=== PATIENT | male | born 1985 | race Two or more races ===

== ENCOUNTER 2021-10-29 12:29 | Emergency (ER) | payer SELFPAY ==
--- NOTE | ~2021-10-29 | XR_ITS ---
EXAMINATION: XR ankle LT min 3V DATE: 10/29/2021 14:06 INDICATION: Left ankle pain and swelling. Gout. TECHNIQUE: 4 views of left ankle were obtained. COMPARISON: None. FINDINGS: Bone alignment is normal. No fracture. There is an erosion of distal fibula. There is an en thesophyte at posterior aspect of calcaneal tuberosity. Ankle soft tissue swelling is noted. IMPRESSION: 1. Erosions of distal fibula, which may be seen with gout. Reviewed, dictated and finalized at location A. PRODUCTION ASSISTANT
--- NOTE | ~2021-10-29 | XR_ITS ---
EXAMINATION: XR knee RT 3V DATE: 10/29/2021 14:06 INDICATION: Right knee pain and swelling. TECHNIQUE: 3 views of right knee were obtained. COMPARISON: None. FINDINGS: Bone alignment is normal. No fracture. Joint spaces are normal. There is a moderate-sized k nee joint effusion. IMPRESSION: 1. Moderate-sized knee joint effusion. Reviewed, dictated and finalized at location A. 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
[2021-10-29 12:30] VITALS: BP 128/98; PULSE 90; RESP 18; TEMP 37.2; O2SAT 100
--- NOTE | 2021-10-29 12:34 | ED.LOWEXIN ---
HPI - Extremity Injury (Lower) General Chief Complaint: Extremity Problem,Nontraumatic Stated Complaint: leg pain/swelling Time Seen by Provider: 10/29/21 12:33 Source: patient History of Present Illness HPI Narrative: Patient presents with lower extremity pain concern for gout. Patient reports longstanding history of gout that [place] his home medications such as colchicine. He has had pain in his right toe right knee and right elbow he took ibuprofen in his right hand and right elbow have improved but he is of pain in his right knee is now noting pain in his left ankle. Pain is achy, constant, worse with moving his joints, no radiation. Denies any trauma nausea vomiting or fevers Related Data Allergies Allergy/AdvReac Type Severity Reaction Status Date / Time No Known Allergies Allergy Verified 10/29/21 12:42 Review of Systems Review of Systems: CONSTITUTIONAL: Denies fever, chills, or sweats. EYES: Denies visual changes, redness, or discharge. ENT: Denies rhinorrhea, congestion, sore throat, or otalgia. CARDIOVASCULAR: Denies chest pain, palpitations, or edema. RESPIRATORY: Denies cough or dyspnea. GASTROINTESTINAL: Denies abdominal pain, nausea, vomiting, or diarrhea. GENITOURINARY: Denies dysuria or hematuria. SKIN: Denies rash or itching. MUSCULOSKELETAL: Denies back pain, joint pain, or myalgia. NEUROLOGIC: Denies headache, numbness, dizziness, or weakness. PSYCHIATRIC: Denies anxiety or depression. All systems reviewed & are unremarkable except as noted in HPI and below PMFSH Past Medical History Medical History (Updated 10/29/21 @ 15:05 by Yrn Andre MD) Gout Social History Social History (Updated 10/29/21 @ 12:37 by Yrn Andre MD) Additional living arrangements comments: Currently staying at a hotel he is [place] from [place] country Exam Narrative: GENERAL: Well-appearing, well-nourished, and in no acute distress. HEAD: Normocephalic, atraumatic. EYES: PERRLA and EOMI. ENT: Nares clear, no rhinorrhea or epistaxis. Mucous membranes moist. NECK: Supple. No masses. No JVD EXTREMITIES: Patient has diffuse right knee pain with edema and warmth but no significant erythema. There is erythema warmth and edema noted to the left ankle no obvious deformity no focal bony tenderness SKIN: Warm, dry, no rash. NEURO: No focal deficits. Alert and oriented x3. PSYCH: Normal mood and affect. Course Reevaluation(s) Reevaluation #1: Patient reports feelings improved primary concern is for gout patient is appropriate for continued outpatient phototherapy Date: 10/29/21 Time: 15:02 Vital Signs Vital signs: Vital Signs Temperature 37.2 C 10/29/21 12:30 Pulse Rate 90 10/29/21 12:30 Respiratory Rate 18 10/29/21 12:30 Blood Pressure 128/98 H 10/29/21 12:30 Pulse Oximetry 100 10/29/21 12:30 Temperature 37.2 C 10/29/21 12:30 Pulse Rate 86 10/29/21 16:07 Respiratory Rate 18 10/29/21 16:07 Blood Pressure 128/94 H 10/29/21 16:07 Pulse Oximetry 100 10/29/21 16:07 MDM - Extremity Injury (Lower) MDM Narrative Medical decision making narrative: H&P as above, vss, pt looks clinically well, exam swollen tender joints with some erythema, labs reassuring, additional labs/img considered. Given patient's history of primary that he ran out of his home medication primary concern is for gout flare. Symptomatic relief available as needed patient treated with Toradol, on reevaluation pt continues to looks clinically well reporting large improvement in symptoms. Suspect gout flare, dns infected joint, fracture, major neurovascular compromise. plan to tx/monitor as op w/ pcm f/u findings/plan discussed with pt, pt agree/comfortable with plan, return precautions given Lab Data Result diagrams: 10/29/21 12:49 10/29/21 12:49 Labs: Lab Results 10/29/21 10/29/21 Range/Units 12:49 12:49 WBC 8.5 (4.5-10.0) K/mm3 RBC
[2021-10-29] MEDS: SODIUM CHLORIDE 0.9% IV 1,000 ML 999 ML IV CONT (12:49)
[2021-10-29] MEDS: KETOROLAC 15 MG/ML VIAL (*BKC) IV PUSH (12:49)
[2021-10-29 12:57] LABS: Basophils Percent Auto 0.5 % (0.2-1.2); Eosinophils Absolute Auto 0.1 K/mm3 (0-0.3); Eosinophils Percent Auto 1.1 % (0-4.4); Hematocrit 42.4 % (42.0-52.0); Hemoglobin 14.6 g/dL (14.0-18.0); Immature Granulocyte Absolute 0.04 K/mm3 (0.00-0.031); Immature Granulocyte Percent A 0.5 % (0-0.5); Lymphocytes Absolute Auto 1.79 K/mm3 (0.9-3.2); Lymphocytes Percent Auto 21.1 % (18.3-44.2); Mean Corpuscular HGB Conc 34.4 g/dl (32-36); Mean Corpuscular Hemoglobin 31.1 pg (26-34); Mean Corpuscular Volume 90.2 fl (80-100); Mean Platelet Volume 8.9 fl (7.4-10.4); Monocytes Absolute Auto 0.9 K/mm3 (0.1-0.6); Monocytes Percent Auto 10.4 % (2.6-8.5); Neutrophils Absolute Auto 5.6 K/mm3 (1.3-6.7); Neutrophils Percent Auto 66.4 % (45.5-73.1); Platelet Count Result 307 k/mm3 (150-375); Red Cell Distribution Width 11.9 % (11.5-14.5); White Blood Count 8.5 K/mm3 (4.5-10.0)
[2021-10-29 13:06] LABS: Alanine Aminotransferase 17 U/L (4-50); Albumin Level 4.3 g/dL (3.5-5.1); Alkaline Phosphatase 97 U/L (38-126); Anion Gap 12 mmol/L (8-16); Aspartate Amino Transferase 22 U/L (17-59); Bilirubin,Total 0.7 mg/dL (0.2-1.3); Blood Urea Nitrogen 12 mg/dL (9-20); Carbon Dioxide 24 mmol/L (22-30); Chloride 103 mmol/L (98-107); Estimated CRCL calculation 112 ml/min; Estimated Glomerular Filt Rate > 60; Glucose 104 mg/dL (65-110); Sodium 139 mmol/L (137-145); Uric Acid 7.6 mg/dL (3.5-8.5)
[2021-10-29] MEDS: MORPHINE SULFATE (*CRX) 4 MG/ML INJ IV PUSH (13:44)
[2021-10-29] MEDS: COLCHICINE 0.6 MG TABLET 1.2 MG PO (15:37)
[2021-10-29 16:07] VITALS: BP 128/94; PULSE 86; RESP 18; O2SAT 100
== END 2021-10-29 16:09 | disposition home or self-care (01) ==
PROVIDERS: Emergency Provider Emergency Medicine
DX: M10.9 Gout, unspecified (principal)
CPT/HCPCS: 36415; 73562; 73610; 80053; 84550; 85025; 96374; 96375; 99284; A9270; J1885; J2270; J7030

== ENCOUNTER 2021-11-21 18:38 | Emergency (ER) | payer OTHER, SELFPAY ==
[2021-11-21 19:34] VITALS: PULSE 86; RESP 16; TEMP 36.8; O2SAT 100
--- NOTE | 2021-11-21 19:49 | ED.GENADULT ---
HPI - General Adult General Chief complaint: Unspecified Stated complaint: gout, needs meds refilled Time Seen by Provider: 11/21/21 19:49 Source: patient Mode of arrival: ambulatory Limitations: no limitations History of Present Illness HPI narrative: Patient is a 36-year-old male complaining of left ankle joint pain and left foot big toe pain that started few days ago, it is my gout, I run out of my colchicine . Patient states that he traveled here from [place] a month ago for a job interview and actually got the job and now he is here for good, states that he was seen here almost a month ago for the same complaint, colchicine worked but he ran out. Patient also states that in [place] they gave him a shot which helped with his symptoms. Patient denies any other complaints. Related Data Allergies Allergy/AdvReac Type Severity Reaction Status Date / Time No Known Allergies Allergy Verified 10/29/21 12:42 [facility] Past Medical History Medical History Gout Social History Social History Additional living arrangements comments: Currently staying at a hotel he is visiting from another country Comments Social history: Non-smoker no EtOH or drug use Family history: Unknown Exam Const: General: cooperative, healthy appearing, comfortable, no acute distress, well developed, alert and awake; No confusion Orientation/consciousness: oriented to person, oriented to place, oriented to time, patient oriented x3 and No confusion Limitations: no limitations HENMT: Head: normal to inspection, normocephalic and atraumatic Ears: hearing grossly normal bilaterally, TM normal on the right and TM normal on the left General nose exam: Normal external nose present, Normal nares present and No nasal discharge present Face and sinus: normal facial exam Mouth: Yes Normal oral and palatal mucosa present, Yes lip normal, Yes tongue normal and Yes oropharynx normal Throat: posterior oropharynx normal, tonsils normal and uvula midline Eyes: General: appearance normal, both eyes and all related structures Pupils: Equal, round and reactive pupils present EOM: EOMs intact bilaterally Neck: Neck: normal visual inspection, full ROM, no lymphadenopathy and no meningeal signs Chest: Chest palpation & inspection: normal inspection of the chest Resp: Effort & Inspection: normal respiratory effort, able to speak in complete sentences, no respiratory distress and not tachypneic Auscultation: clear to auscultation bilaterally, no crackles, no rales, no rhonchi and no wheezes Cardio: Rate: regular rate Rhythm: regular rhythm GI: Inspection: normal to inspection GI Palp: No abdominal tenderness, Yes Soft to palpation, No Tenderness to palpation present (GI), No Guarding due to palpation present (GI), No Rigid due to palpation and No Rebound tenderness present Auscultation: normal bowel sounds : General: Yes no CVA tenderness Back/Spine/Pelvis: Back: no CVA tenderness Skin: General skin exam: normal color, no rashes or lesions noted, elasticity normal and turgor normal Neuro: General: oriented to person, oriented to place, oriented to time, patient oriented x3, tone normal, moves all extremities, Normal light touch and pain sensation, no meningeal signs, no focal motor deficits, CN's II-XI intact bilaterally and No confusion Cranial nerves: Yes Equal, round and reactive pupils present Speech: No Abnormal speech present Sensory Exam: No Sensory deficit (Neuro) Extrem: General: normal to inspection, full ROM and capillary refill normal Right lower extremity: normal to inspection Other: Mild redness left lateral ankle, tenderness on palpation of first digit left foot Psych: Appearance: grossly normal and well kempt Mental Status: mental status grossly normal Speech and movement: Normal speech and movement present Affect: normal affect Attitu
[2021-11-21] MEDS: KETOROLAC (*BKC) 60 MG/2 ML VIAL IM (20:24)
[2021-11-21] MEDS: methylPREDNISolone SOD SUCC 125 MG VIAL 80 MG IM (21:14)
== END 2021-11-21 21:27 | disposition home or self-care (01) ==
LOC: ANHED 20:41
PROVIDERS: Emergency Provider Emergency Medicine
DX: M10.9 Gout, unspecified (principal)
CPT/HCPCS: 96372; 99284; J1885; J2930